=== PATIENT | female | born 1995 | race African-American/Black ===

== ENCOUNTER 2017-10-19 21:29 | Emergency (ER) | payer OTHER ==
[~2017-10-19] VITALS: Ht 157.5 cm; Wt 59.0 kg
[2017-10-19 21:33] VITALS: BP 106/78
== END 2017-10-19 23:47 | disposition home or self-care (01) ==
LOC: ER 21:29
DX: N76.0 Acute vaginitis (principal); B96.89 Other specified bacterial agents as the cause of diseases classified elsewhere; J45.909 Unspecified asthma, uncomplicated; N39.0 Urinary tract infection, site not specified; Z88.0 Allergy status to penicillin; Z88.1 Allergy status to other antibiotic agents
CPT/HCPCS: 87210; 99283; A4606; Z7610